=== PATIENT | female | born 1985 | race African-American/Black ===

== ENCOUNTER 2017-09-13 12:10 | Emergency (ER) | payer MEDICAID ==
[~2017-09-13] VITALS: Ht 162.6 cm; Wt 60.8 kg
[~2017-09-13 12:10] MED LIST: PREN-96 PO
[2017-09-13] MEDS ORDERED: SODIUM CHLORIDE 0.9% 1,000 ML IV ONE (13:30)
[2017-09-13 14:02] LABS: Basophils # (auto) 0 uL; Basophils % (auto) 0.5 % (0.0-2.0); Eosinophils # (auto) 0 uL; Hemoglobin 10.7 g/dL (12.2-16.2); Lymphocytes # (auto) 1.1 uL
[2017-09-13 14:04] LABS: Eosinophils % (auto) 0.2 % (0.0-7.0); Hematocrit 33.9 % (36.0-46.0); Lymphocytes % (auto) 13.3 % (10.0-50.0); Mean Corpuscular Hemoglobin 23.9 pg (28.0-32.0); Mean Corpuscular Hgb Conc. 31.7 g/dL (32.0-36.0); Mean Corpuscular Volume 75.6 fL (80.0-100.0); Monocytes # (auto) 0.6 uL; Monocytes % (auto) 6.6 % (0.0-12.0); Neutrophils # (auto) 6.7 uL; Neutrophils % (auto) 79.4 % (37.0-80.0); Nucleated Red Blood Cells % 0.1 %; Platelet Count (auto) 291 10^3/uL (140-450); Red Blood Cells 4.49 10^6/uL (4.0-5.20); Red Cell Distribution Width 15.6 % (11.8-14.3); White Blood Cell 8.4 10^3/uL (4.4-10.8)
[2017-09-13 14:15] LABS: BUN/Creatinine Ratio 15.9; Calcium 8.9 mg/dL (8.5-10.1); Potassium 3.6 mmol/L (3.5-5.1)
[2017-09-13] MEDS ORDERED: CLINDAMYCIN 600MG IV 50 ML IV ONE (18:30)
[2017-09-13 19:30] VITALS: BP 118/68
== END 2017-09-13 20:50 | disposition home or self-care (01) ==
LOC: ER 12:10
DX: N61.0 Mastitis without abscess (principal)
CPT/HCPCS: 36415; 76642; 80048; 85025; 96361; 96365; 99285; J3490

== ENCOUNTER → 2023-08-14 | Outpatient (CLI) | payer MEDICAID ==
[2023-08-14 14:08] LABS: Basophils # (auto) 0 10 ^3/uL (0-0.2); Basophils % (auto) 0.3 % (0.0-2.0); Eosinophils # (auto) 0 10 ^3/uL (0-0.8); Eosinophils % (auto) 0.5 % (0.0-7.0); Hematocrit 35.8 % (36.0-46.0); Hemoglobin 11.9 g/dL (12.2-16.2); Lymphocytes # (auto) 1.5 10 ^3/uL (0.4-5.4); Lymphocytes % (auto) 18.4 % (10.0-50.0); Mean Corpuscular Hgb Conc. 33.4 g/dL (32.0-36.0); Mean Corpuscular Volume 83.8 fL (80.0-100.0); Monocytes # (auto) 0.7 10 ^3/uL (0-1.3); Monocytes % (auto) 8.4 % (0.0-12.0); Neutrophils # (auto) 5.9 10 ^3/uL (1.6-8.6); Neutrophils % (auto) 72.4 % (37.0-80.0); Red Blood Cells 4.27 10^6/uL (4.0-5.20); White Blood Cell 8.1 10^3/uL (4.4-10.8)
== END | disposition home or self-care (01) ==
LOC: LAB 13:48
PROVIDERS: ATTEND Obstetrics & Gynecology
DX: Z34.80 Encounter for supervision of other normal pregnancy, unspecified trimester (principal)
CPT/HCPCS: 36415; 82951; 85025

== ENCOUNTER 2023-08-23 11:00 | Observation (INO) | payer MEDICAID | END 2023-08-23 11:50 | disposition home or self-care (01) | LOC: LDRP 11:00 | PROVIDERS: ADMIT Obstetrics & Gynecology; ATTEND Obstetrics & Gynecology | DX: O40.3XX0 Polyhydramnios, third trimester, not applicable or unspecified (principal); Z3A.30 30 weeks gestation of pregnancy | CPT/HCPCS: 59025; 81002; 94760; G0378 ==

== ENCOUNTER 2023-08-26 07:56 | Observation (INO) | payer MEDICAID | END 2023-08-26 08:56 | disposition home or self-care (01) | LOC: LDRP 07:56 | PROVIDERS: ADMIT Obstetrics & Gynecology; ATTEND Obstetrics & Gynecology | DX: O40.3XX0 Polyhydramnios, third trimester, not applicable or unspecified (principal); Z91.013 Allergy to seafood; Z3A.31 31 weeks gestation of pregnancy | CPT/HCPCS: 59025; 81002; G0378 ==

== ENCOUNTER 2023-09-02 07:58 | Observation (INO) | payer MEDICAID | END 2023-09-02 09:27 | disposition home or self-care (01) | LOC: LDRP 07:58 → UNDOADMOB 07:58 → LDRP 08:02 → UNDODISOB 09:27 | PROVIDERS: ADMIT Obstetrics & Gynecology; ATTEND Obstetrics & Gynecology | DX: O40.3XX0 Polyhydramnios, third trimester, not applicable or unspecified (principal); O26.893 Other specified pregnancy related conditions, third trimester; R51.9 Headache, unspecified; Z3A.32 32 weeks gestation of pregnancy | CPT/HCPCS: 59025; 76818; 81002; 94760; G0378 ==

== ENCOUNTER 2023-09-05 07:38 | Observation (INO) | payer MEDICAID | END 2023-09-05 08:57 | disposition home or self-care (01) | LOC: UNDOADMOB 07:53 → LDRP 07:53 → UNDODISOB 08:57 | PROVIDERS: ADMIT Obstetrics & Gynecology; ATTEND Obstetrics & Gynecology | DX: O40.3XX0 Polyhydramnios, third trimester, not applicable or unspecified (principal); O26.893 Other specified pregnancy related conditions, third trimester; R11.0 Nausea; Z3A.32 32 weeks gestation of pregnancy | CPT/HCPCS: 59025; 81002; G0378 ==

== ENCOUNTER 2023-09-09 08:07 | Observation (INO) | payer MEDICAID | END 2023-09-09 10:05 | disposition home or self-care (01) | LOC: UNDOADMOB 08:07 → LDRP 08:07 → UNDODISOB 10:05 | PROVIDERS: ADMIT Obstetrics & Gynecology; ATTEND Obstetrics & Gynecology | DX: O40.3XX0 Polyhydramnios, third trimester, not applicable or unspecified (principal); Z91.013 Allergy to seafood; Z3A.33 33 weeks gestation of pregnancy | CPT/HCPCS: 59025; 76818; 81002; 94760; G0378 ==

== ENCOUNTER 2023-09-12 07:22 | Observation (INO) | payer MEDICAID | END 2023-09-12 09:25 | disposition home or self-care (01) | LOC: UNDOADMOB 07:58 → LDRP 07:58 → UNDODISOB 09:25 | PROVIDERS: ADMIT Obstetrics & Gynecology; ATTEND Obstetrics & Gynecology | DX: O40.3XX0 Polyhydramnios, third trimester, not applicable or unspecified (principal); Z3A.33 33 weeks gestation of pregnancy | CPT/HCPCS: 59025; 76818; 81002; G0378 ==

== ENCOUNTER 2023-09-16 07:58 | Observation (INO) | payer MEDICAID | END 2023-09-16 09:03 | disposition home or self-care (01) | LOC: LDRP 07:58 → UNDOADMOB 07:58 → LDRP 08:09 → UNDODISOB 09:03 | PROVIDERS: ADMIT Obstetrics & Gynecology; ATTEND Obstetrics & Gynecology | DX: O40.3XX0 Polyhydramnios, third trimester, not applicable or unspecified (principal); Z91.013 Allergy to seafood; Z3A.34 34 weeks gestation of pregnancy | CPT/HCPCS: 59025; 76818; 81002; 94760; G0378 ==

== ENCOUNTER 2023-09-23 07:55 | Observation (INO) | payer MEDICAID | END 2023-09-23 09:18 | disposition home or self-care (01) | LOC: LDRP 07:55 | PROVIDERS: ADMIT Obstetrics & Gynecology; ATTEND Obstetrics & Gynecology | DX: O40.3XX0 Polyhydramnios, third trimester, not applicable or unspecified (principal); O26.893 Other specified pregnancy related conditions, third trimester; N89.8 Other specified noninflammatory disorders of vagina; Z91.013 Allergy to seafood; Z3A.35 35 weeks gestation of pregnancy | CPT/HCPCS: 59025; 76818; 81002; G0378 ==

== ENCOUNTER 2023-09-30 08:25 | Observation (INO) | payer MEDICAID | END 2023-09-30 09:30 | disposition home or self-care (01) | LOC: LDRP 08:25 → UNDOADMOB 08:25 → LDRP 08:28 → UNDODISOB 09:30 | PROVIDERS: ADMIT Obstetrics & Gynecology; ATTEND Obstetrics & Gynecology | DX: O40.3XX0 Polyhydramnios, third trimester, not applicable or unspecified (principal); Z3A.36 36 weeks gestation of pregnancy | CPT/HCPCS: 59025; 76818; 81002; 94760; G0378 ==

== ENCOUNTER 2023-10-07 07:58 | Observation (INO) | payer MEDICAID | END 2023-10-07 09:08 | disposition home or self-care (01) | LOC: LDRP 07:58 → UNDOADMOB 07:58 → LDRP 08:00 → UNDODISOB 09:08 | PROVIDERS: ADMIT Obstetrics & Gynecology; ATTEND Obstetrics & Gynecology | DX: O40.3XX0 Polyhydramnios, third trimester, not applicable or unspecified (principal); O26.893 Other specified pregnancy related conditions, third trimester; R51.9 Headache, unspecified; Z91.013 Allergy to seafood; Z3A.37 37 weeks gestation of pregnancy | CPT/HCPCS: 59025; 76818; 81002; 94760; G0378 ==

== ENCOUNTER 2023-10-14 08:25 | Observation (INO) | payer MEDICAID | END 2023-10-14 09:56 | disposition home or self-care (01) | LOC: LDRP 08:25 → UNDOADMOB 08:25 → LDRP 08:31 → UNDODISOB 09:56 | PROVIDERS: ADMIT Obstetrics & Gynecology; ATTEND Obstetrics & Gynecology | DX: O40.3XX0 Polyhydramnios, third trimester, not applicable or unspecified (principal); Z91.013 Allergy to seafood; Z3A.38 38 weeks gestation of pregnancy | CPT/HCPCS: 59025; 76818; 81002; 94760; G0378 ==

== ENCOUNTER 2023-10-23 04:00 | Inpatient (IN) | payer MEDICAID ==
[2023-10-21 10:18] LABS: Basophils # (auto) 0 10 ^3/uL (0-0.2); Basophils % (auto) 0.4 % (0.0-2.0); Eosinophils # (auto) 0 10 ^3/uL (0-0.8); Eosinophils % (auto) 0.4 % (0.0-7.0); Hematocrit 39.9 % (36.0-46.0); Hemoglobin 13.3 g/dL (12.2-16.2); Lymphocytes % (auto) 24.2 % (10.0-50.0); Mean Corpuscular Hemoglobin 27.8 pg (28.0-32.0); Mean Corpuscular Hgb Conc. 33.2 g/dL (32.0-36.0); Mean Corpuscular Volume 83.7 fL (80.0-100.0); Monocytes # (auto) 0.7 10 ^3/uL (0-1.3); Monocytes % (auto) 8.8 % (0.0-12.0); Neutrophils # (auto) 5.4 10 ^3/uL (1.6-8.6); Neutrophils % (auto) 66.2 % (37.0-80.0); Nucleated Red Blood Cells % 0.1 %; Red Blood Cells 4.77 10^6/uL (4.0-5.20); Red Cell Distribution Width 14.1 % (11.8-14.3); White Blood Cell 8.2 10^3/uL (4.4-10.8)
[2023-10-21 10:34] LABS: INR 0.92 (0.9-1.15); Partial Thromboplastin Time 24.8 SEC (24.5-34.5); Prothrombin Time 9.7 sec (9.3-11.8)
[2023-10-21 10:36] LABS: Alanine Aminotransferase 11 U/L (7-40); Albumin 3.9 g/dL (3.2-4.8); Alkaline Phosphatase 132 U/L (46-116); Anion Gap 8 (5-15); Aspartate Aminotransferase 19 U/L (13-40); Bilirubin, Total 0.6 mg/dL (0.2-1.0); Calcium 9.8 mg/dL (8.5-10.1); Carbon Dioxide 25 mmol/L (20-30); Chloride 104 mmol/L (98-107); Glucose 71 mg/dL (74-106); Potassium 3.7 mmol/L (3.5-5.1); Sodium 137 mmol/L (136-145); Total Protein 6.3 g/dL (5.7-8.2)
[2023-10-21 10:44] LABS: BUN/Creatinine Ratio 8.9 (10.0-20.0); Blood Urea Nitrogen < 5 mg/dL (9-23)
[2023-10-21 12:02] LABS: Urine Bacteria FEW /hpf (None Seen); Urine Blood Negative /uL (Negative); Urine Clarity HAZY (Clear); Urine Color Yellow (Yellow); Urine Protein, UAD Negative (Negative); Urine Specific Gravity 1.013 (1.001-1.035); Urine Urobilinogen Normal (Negative); Urine WBC 1 /hpf (0 - 5); Urine pH 6.5 (5.0-8.0)
[2023-10-21 12:03] LABS: Amphetamine Screen, Urine Neg (NEGATIVE)
[2023-10-21 12:04] LABS: Barbiturate Scree,Urine Neg (NEGATIVE); Benzodiazephine Screen, Urine Neg (NEGATIVE); Cannabinoid Screen, Urine Neg (NEGATIVE); Cocaine Screen, Urine Neg (NEGATIVE); Opiate Scree,Urine Neg (NEGATIVE); Phencyclidine Screen, Urine Neg (NEGATIVE)
[2023-10-22 07:07] LABS: RPR Non Reactive (Non Reactive)
[~2023-10-23] VITALS: Ht 160 cm; Wt 75.7 kg
[2023-10-23] VITALS (16 sets, daily range): BP systolic 97–120; BP diastolic 50–72; PULSE 78–94; RESP 12–17; TEMP 97.6–99; O2SAT 95–100
[2023-10-23] MEDS ORDERED: LACTATED RINGER'S 1,000 ML IV SCH ×2 (04:15→11:15)
[2023-10-23] MEDS ORDERED: LACTATED RINGER'S 1,000 ML IV ONE (04:15)
[2023-10-23] MEDS ORDERED: ceFAZolin 2 GM/D5W100ml 100 ML IV ONE (04:15)
[2023-10-23] MEDS ORDERED: PHISODERM TOP SOLN 240ML BTL TOP PRN (05:15)
[2023-10-23] MEDS ORDERED: TETRACAINE 1% INJ 2 ML VIAL IJ ONE (07:19)
[2023-10-23] MEDS ORDERED: MORPHINE SULF PF 5 MG/10 ML VIAL ONE (07:42)
[2023-10-23] MEDS ORDERED: fentaNYL CITRATE 100 MCG/2 ML VL ONE (07:42)
[2023-10-23] MEDS ORDERED: MIDAZOLAM HCL 2MG/2ML 2ml VIAL (1mg/ml) ONE (07:43)
[2023-10-23] MEDS ORDERED: DexAMETHasone SOD PHOS 10MG/1ML VIAL INJ IV PRN (08:30)
[2023-10-23] MEDS ORDERED: LABETALOL HCL 5 MG/ML 4ML SYRINGE IV PRN (08:30)
[2023-10-23] MEDS ORDERED: ONDANSETRON HCL 4 MG/2 ML VIAL IV PRN ×3 (08:30→11:15)
[2023-10-23] MEDS ORDERED: ePHEDrine SULFATE 50 MG/ML AMP IV PRN ×2 (08:30→11:15)
[2023-10-23] MEDS ORDERED: NALOXONE HCL 0.4 MG/ML VIAL IV PRN (08:30)
[2023-10-23] MEDS ORDERED: HYDROmorphone HCL 2 MG/ML VL/or syr IV PRN (08:30)
[2023-10-23] MEDS ORDERED: diphenhdrAMINE HCL 50 MG/1 ML VL IV PRN ×2 (08:30→13:35)
[2023-10-23] MEDS ORDERED: MIDAZOLAM HCL 2MG/2ML 2ml VIAL (1mg/ml) IV PRN (08:30)
[2023-10-23] MEDS ORDERED: KETOROLAC TROMETH 30 MG/ML 1ML VIAL IV ONE (08:30)
[2023-10-23] MEDS ORDERED: LACT. RINGERS/OXYTOCIN 20UNITS 1,000 ML IV ONE (11:15)
[2023-10-23] MEDS ORDERED: MORPHINE SULFATE 4 MG/ML SYR/VIAL IV PRN (11:15)
[2023-10-23] MEDS ORDERED: FAMOTIDINE (10MG/ML) 2ML VL IV ONE (11:30)
[2023-10-23] MEDS: ACETAMINOPHEN IV 1000 MG/100ML (10MG/ML) IV PRN (13:30)
[2023-10-23] MEDS: ceFAZolin 1GM/50ML 50 ML IV SCH (15:43)
[2023-10-23] MEDS ORDERED: DOCU-94 PO (18:25)
[2023-10-23] MEDS ORDERED: IBUP-1456 PO (18:25)
[2023-10-23] MEDS ORDERED: HYDR-4902 PO (18:25)
[2023-10-23 19:37] LABS: Basophils # (auto) 0 10 ^3/uL (0-0.2); Basophils % (auto) 0.6 % (0.0-2.0); Eosinophils # (auto) 0 10 ^3/uL (0-0.8); Eosinophils % (auto) 0.2 % (0.0-7.0); Hematocrit 37.3 % (36.0-46.0); Hemoglobin 12.5 g/dL (12.2-16.2); Lymphocytes % (auto) 11.6 % (10.0-50.0); Mean Corpuscular Hemoglobin 28.2 pg (28.0-32.0); Mean Corpuscular Hgb Conc. 33.4 g/dL (32.0-36.0); Mean Corpuscular Volume 84.4 fL (80.0-100.0); Monocytes # (auto) 0.6 10 ^3/uL (0-1.3); Monocytes % (auto) 7.3 % (0.0-12.0); Neutrophils # (auto) 6.6 10 ^3/uL (1.6-8.6); Neutrophils % (auto) 80.3 % (37.0-80.0); Nucleated Red Blood Cells % 0.1 %; Red Blood Cells 4.42 10^6/uL (4.0-5.20); White Blood Cell 8.2 10^3/uL (4.4-10.8)
[2023-10-23] MEDS ORDERED: KETOROLAC TROMETH 30 MG/ML 1ML VIAL ONE (21:50)
[2023-10-23] MEDS: KETOROLAC TROMETH 30 MG/ML 1ML VIAL IV PRN (21:51)
[2023-10-24] VITALS (10 sets, daily range): BP systolic 104–135; BP diastolic 59–77; PULSE 98–120; RESP 18–20; TEMP 97–100.4; O2SAT 96–99
[2023-10-24] MEDS: ceFAZolin 1GM/50ML 50 ML IV SCH ×4 (00:02→23:28)
[2023-10-24] MEDS ORDERED: KETOROLAC TROMETH 30 MG/ML 1ML VIAL ONE ×3 (04:42→17:34)
[2023-10-24] MEDS: KETOROLAC TROMETH 30 MG/ML 1ML VIAL IV PRN ×3 (04:45→17:42)
[2023-10-24 05:03] LABS: Basophils # (auto) 0 10 ^3/uL (0-0.2); Basophils % (auto) 0.3 % (0.0-2.0); Eosinophils # (auto) 0 10 ^3/uL (0-0.8); Hematocrit 34.4 % (36.0-46.0); Hemoglobin 11.4 g/dL (12.2-16.2); Lymphocytes # (auto) 0.4 10 ^3/uL (0.4-5.4); Lymphocytes % (auto) 5.4 % (10.0-50.0); Mean Corpuscular Volume 84.8 fL (80.0-100.0); Monocytes # (auto) 0.6 10 ^3/uL (0-1.3); Monocytes % (auto) 7.9 % (0.0-12.0); Neutrophils # (auto) 6.3 10 ^3/uL (1.6-8.6); Neutrophils % (auto) 86.4 % (37.0-80.0); Red Blood Cells 4.06 10^6/uL (4.0-5.20); Red Cell Distribution Width 14.2 % (11.8-14.3); White Blood Cell 7.3 10^3/uL (4.4-10.8)
[2023-10-24] MEDS: ACETAMINOPHEN IV 1000 MG/100ML (10MG/ML) IV PRN (07:24)
[2023-10-24] MEDS ORDERED: LACTATED RINGER'S 500 ML IV ONE (13:30)
[2023-10-24] MEDS ORDERED: LACTATED RINGER'S 1,000 ML IV ONE (13:30)
[2023-10-24 14:22] LABS: Basophils # (auto) 0 10 ^3/uL (0-0.2); Basophils % (auto) 0.3 % (0.0-2.0); Eosinophils # (auto) 0 10 ^3/uL (0-0.8); Hematocrit 37.1 % (36.0-46.0); Hemoglobin 12.5 g/dL (12.2-16.2); Lymphocytes # (auto) 0.5 10 ^3/uL (0.4-5.4); Lymphocytes % (auto) 8.2 % (10.0-50.0); Mean Corpuscular Hemoglobin 28.3 pg (28.0-32.0); Mean Corpuscular Hgb Conc. 33.6 g/dL (32.0-36.0); Mean Corpuscular Volume 84.1 fL (80.0-100.0); Monocytes # (auto) 0.2 10 ^3/uL (0-1.3); Monocytes % (auto) 3.3 % (0.0-12.0); Neutrophils # (auto) 5.2 10 ^3/uL (1.6-8.6); Neutrophils % (auto) 88.2 % (37.0-80.0); Red Blood Cells 4.41 10^6/uL (4.0-5.20); White Blood Cell 5.9 10^3/uL (4.4-10.8)
[2023-10-24] MEDS ORDERED: ceFAZolin 1GM/50ML 50 ML IV ONE ×2 (15:11→23:24)
[2023-10-24 19:06] LABS: Treponema pallidum Ab (FTA-Ab) Non Reactive (Non Reactive)
[2023-10-24] MEDS ORDERED: IBUPROFEN 800 MG TAB PO PRN (22:15)
[2023-10-24] MEDS ORDERED: HYDROcodone-ACET 5/325MG TAB PO PRN (22:15)
[2023-10-24] MEDS ORDERED: HYDROcodone-ACET 5/325MG TAB ONE (23:24)
[2023-10-24] MEDS: HYDROcodone-ACET 5/325MG TAB PO PRN (23:29)
[2023-10-25] MEDS ORDERED: IBUPROFEN 800 MG TAB PO ONE (02:01)
[2023-10-25 02:50] VITALS: BP 114/75; PULSE 94; RESP 18; TEMP 97.8; O2SAT 98
[2023-10-25 04:33] LABS: Basophils # (auto) 0 10 ^3/uL (0-0.2); Basophils % (auto) 0.4 % (0.0-2.0); Eosinophils # (auto) 0 10 ^3/uL (0-0.8); Eosinophils % (auto) 0.2 % (0.0-7.0); Hematocrit 39.1 % (36.0-46.0); Hemoglobin 12.7 g/dL (12.2-16.2); Lymphocytes # (auto) 0.5 10 ^3/uL (0.4-5.4); Lymphocytes % (auto) 7.5 % (10.0-50.0); Mean Corpuscular Hemoglobin 27.8 pg (28.0-32.0); Mean Corpuscular Hgb Conc. 32.6 g/dL (32.0-36.0); Mean Corpuscular Volume 85.4 fL (80.0-100.0); Monocytes # (auto) 0.3 10 ^3/uL (0-1.3); Monocytes % (auto) 5.1 % (0.0-12.0); Neutrophils # (auto) 5.6 10 ^3/uL (1.6-8.6); Neutrophils % (auto) 86.8 % (37.0-80.0); Red Blood Cells 4.58 10^6/uL (4.0-5.20); Red Cell Distribution Width 14.8 % (11.8-14.3); White Blood Cell 6.5 10^3/uL (4.4-10.8)
[2023-10-25] MEDS ORDERED: SIMETHICONE 80 MG CHEWABLE TABLET ONE (05:52)
[2023-10-25] MEDS ORDERED: HYDROcodone-ACET 5/325MG TAB ONE (05:52)
[2023-10-25] MEDS: HYDROcodone-ACET 5/325MG TAB PO PRN (05:53)
[2023-10-25] MEDS ORDERED: SIMETHICONE 80 MG CHEWABLE TABLET PO SCH (06:00)
[2023-10-25 07:25] VITALS: BP 116/78; PULSE 83; RESP 18; TEMP 97.7; O2SAT 98
[2023-10-25] MEDS ORDERED: ceFAZolin 1GM/50ML 50 ML IV ONE (07:30)
[2023-10-25] MEDS: ceFAZolin 1GM/50ML 50 ML IV SCH (07:31)
== END 2023-10-25 10:27 | disposition home or self-care (01) | DRG 539 ==
LOC: LDRP 04:00
PROVIDERS: ADMIT Obstetrics & Gynecology; ATTEND Obstetrics & Gynecology
PROC: 0UB70ZZ Excision of Bilateral Fallopian Tubes, Open Approach (ICD-10-PCS; 2023-10-23)
PROC: 10D00Z1 Extraction of Products of Conception, Low, Open Approach (ICD-10-PCS; principal; 2023-10-23 07:35)
DX: O34.211 Maternal care for low transverse scar from previous cesarean delivery (principal); R71.0 Precipitous drop in hematocrit; J98.11 Atelectasis; Z30.2 Encounter for sterilization; Z37.0 Single live birth; Z3A.39 39 weeks gestation of pregnancy; O99.52 Diseases of the respiratory system complicating childbirth; O09.523 Supervision of elderly multigravida, third trimester
CPT/HCPCS: 36415; 59025; 71046; 80053; 80307; 81001; 85025; 85610; 85730; 86592; 86850; 86900; 86901; 94760; 94762; 96360; 96361; 96365; 96366; 96374; 96375; G0378; J0131; J1885; J2250; J3490